=== PATIENT | male | born 1960 | race Caucasian/White ===

== ENCOUNTER → 2024-03-31 16:50 | Outpatient (REF) | payer MEDICARE, OTHER, SELFPAY | LOC: RAD 16:50 | PROVIDERS: ATTENDING PHYSICIAN Physician Assistant Medical | DX: M25.561 Pain in right knee (principal) | CPT/HCPCS: 73564 ==

== ENCOUNTER → 2024-04-11 06:21 | Outpatient (REF) | payer MEDICARE, OTHER, SELFPAY | LOC: MRI 3T 06:21 | PROVIDERS: ATTENDING PHYSICIAN Physician Assistant Medical; FAMILY PHYSICIAN Family Medicine | DX: M25.561 Pain in right knee (principal) | CPT/HCPCS: 73721 ==

== ENCOUNTER 2024-05-14 05:55 | Day surgery (SDC) | payer MEDICARE, OTHER, SELFPAY ==
[2024-05-01 11:42] VITALS: BMI 29.1
[2024-05-14] VITALS (8 sets, daily range): BP systolic 116–146; BP diastolic 73–93; BMI 29.1
[2024-05-14] MEDS: TYLENOL 1000 MG PO (06:29)
[2024-05-14] MEDS: CELEBREX 200 MG PO (06:29)
[2024-05-14] MEDS: NORMOSOL-R/PLASMALYTE-A 1000 IV (06:40)
== END 2024-05-14 09:55 | disposition home or self-care (01) ==
LOC: SDS 05:55
PROVIDERS: ATTENDING PHYSICIAN Orthopaedic Surgery; FAMILY PHYSICIAN Family Medicine
DX: S83.231A Complex tear of medial meniscus, current injury, right knee, initial encounter (principal); X58.XXXA Exposure to other specified factors, initial encounter
CPT/HCPCS: 29881

== ENCOUNTER 2024-05-20 06:59 | Day surgery (SDC) | payer MEDICARE, OTHER, SELFPAY | END 2024-05-20 09:12 | disposition home or self-care (01) | LOC: CATH 06:59 | PROVIDERS: ATTENDING PHYSICIAN Internal Medicine; FAMILY PHYSICIAN Family Medicine; OTHER PHYSICIAN Internal Medicine Cardiovascular Disease | DX: I48.0 Paroxysmal atrial fibrillation (principal); E78.2 Mixed hyperlipidemia; Z82.49 Family history of ischemic heart disease and other diseases of the circulatory system; Z79.01 Long term (current) use of anticoagulants | CPT/HCPCS: 93312; 93320; 93325; 92960; 93005 ==